=== PATIENT | female | born 2000 | race American Indian/Alaskan Native ===

== ENCOUNTER 2022-08-13 22:40 | Emergency (ER) | payer MEDICAID ==
[2022-08-14] MEDS ORDERED: ACETAMINOPHEN 325 MG TAB PO ONE (03:51)
[2022-08-14] MEDS ORDERED: ONDANSETRON 4 MG/2 ML INJ IV ONE (03:51)
[2022-08-14] MEDS ORDERED: SODIUM CHLORIDE 0.9% 1000 ML 2,000 ML IV ONE (03:51)
[2022-08-14] MEDS ORDERED: MORPHINE 4 MG/1 ML INJ IV ONE (03:51)
--- NOTE | 2022-08-14 03:52 | Event Note ---
Date: 08/14/22 Medical screening examination note: 22-year-old female who states that she is not , presenting with right flank pain and urinary symptoms. She is febrile and tachycardic. She reports no allergies to medications. Appropriate laboratory studies ordered. Pain medication, nausea medication, fluids, Tylenol, and antibiotics ordered. CT scan abdomen pelvis ordered and pending. Patient currently hemodynamically stable, protecting airway, does appear uncomfortable. Detailed history and physical to be performed by myself or oncoming provider. Vital Signs 08/13/22 23:40 Temperature 103.3 F H Pulse Rate 122 H Respiratory 18 Rate Blood Pressure 143/83 [Right] O2 Sat by Pulse 99 Oximetry Lab Results 08/14/22 Range/Units 04:15 Urine Color Yellow (Yellow) Urine Turbidity Slightly cloudy (Clear) Specific [place] (Man) 1.025 (1.003-1.030) Ur Protein (Man) 2+ (Negative) mg/dL Ur Ketones (Man) 4+ (Negative) Ur Nitrite (Man) Positive (Negative) Urine Bilirubin (Man) Negative (Negative) Leukocyte Esterase (Man) Small (Negative) Urine WBC (Auto) 104.0 H (0.0-6.0) /HPF Urine RBC (Auto) 23.0 (0.0-6.0) /HPF U Epithel Cells (Auto) 5.0 (0-13.0) /HPF Urine Bacteria (Auto) 1+ (Negative) /HPF Urine RBC (Manual) 3+ (Negative) Urine Mucus 3+ /HPF
[2022-08-14 04:34] LABS: Color,Urine Yellow (Yellow)
[2022-08-14 04:36] LABS: Bacteria,Urine 1+ /HPF (Negative); Mucus,Urine 3+ /HPF
[2022-08-14] MEDS ORDERED: cefTRIAXone/NS 1 GM/50 ML 1 GM/50 ML BAG IV ONE (04:46)
[2022-08-14 04:49] LABS: Basophils # (Auto) 0.1 K/mm3 (0.0-0.1); Basophils % (Auto) 0.6 % (0.0-1.8); Lymphocytes # (Auto) 1.3 K/mm3 (1.2-5.4); Lymphocytes % (Auto) 12.2 % (13.4-35.0); Mean Corpuscular HGB Conc 32 % (30-34); Mean Corpuscular Volume 87 fl (79-97); Monocytes % (Auto) 9.7 % (0.0-7.3); Platelet Count 210 K/mm3 (140-440); Red Blood Count 4.27 M/mm3 (3.65-5.03); Red Cell Distribution Width 13.1 % (13.2-15.2)
[2022-08-14 04:57] LABS: INR 1.02 (0.87-1.13)
[2022-08-14 05:14] LABS: Alanine Aminotransferase 20 units/L (7-56); Albumin 4.4 g/dL (3.9-5); Blood Urea Nitrogen 7 mg/dL (7-17); Calcium 8.8 mg/dL (8.4-10.2); Hemolysis Index 5
[2022-08-14 05:15] LABS: BUN/Creatinine Ratio 10
--- NOTE | 2022-08-14 05:57 | Cat Scan Report ---
CT ABDOMEN AND PELVIS WITH CONTRAST INDICATION / CLINICAL INFORMATION: Right flank pain and fever 100ml of [id number]. TECHNIQUE: Axial CT images were obtained through the abdomen and pelvis after IV contrast. All CT sc ans at this location are performed using CT dose reduction for ALARA by means of automated exposure c ontrol. COMPARISON: None available. FINDINGS: LOWER CHEST: No significant abnormality of the imaged chest. LIVER: No focal lesion. No acute findings. GALLBLADDER / BILE DUCTS: No significant abnormality. Biliary ducts grossly unremarkable. SPLEEN: No significant abnormality. PANCREAS: No significant abnormality. ADRENALS: No significant abnormality. KIDNEYS/URETERS: Ill-defined hypoattenuating region of the medial right renal cortex upper pole right kidney and anterior cortex lower pole right kidney. Mild striation of the right renal nephrogram add itionally present. Left kidney unremarkable. STOMACH / DUODENUM / SMALL BOWEL: The stomach, duodenum, and small bowel demonstrate no significant a bnormality. No specific abnormality of the mesentery demonstrated. COLON: No significant abnormality. APPENDIX: No significant abnormality. PERITONEUM: No free air or free fluid are present within the abdomen or pelvis. LYMPH NODES: No significant adenopathy. AORTA / ARTERIES: No significant abnormality. IVC / VEINS: No significant abnormality. URINARY BLADDER: No significant abnormality. REPRODUCTIVE ORGANS: No significant abnormality. SKELETAL SYSTEM: No significant abnormality. ADDITIONAL ABDOMINAL/PELVIC FINDINGS: None. IMPRESSION: 1. Findings compatible with right-sided pyelonephritis. Foci of phlegmon are suggested within the med ial upper pole and anterior lower pole right kidney. Signer Name: Leo Shultz II, MD Signed: 08/14/2022 5:52 AM Workstation Name: [id number]
[2022-08-14] MEDS ORDERED: KETOROLAC 30 MG/1 ML INJ IV ONE (07:38)
[2022-08-14] MEDS ORDERED: oxyCODONE /ACETAMINOPHEN 5-325MG TAB PO ONE (07:39)
--- NOTE | 2022-08-14 09:30 | Emergency Department Report ---
ED Female HPI - General Chief complaint: Abdominal Pain Stated complaint: KIDNEY PAIN Time Seen by Provider: 08/14/22 07:11 Source: patient Mode of arrival: Ambulatory Limitations: No Limitations - History of Present Illness Initial comments: 22-year-old black female with no past medical history presents to the emergency department for evaluation of 3-day history of worsening right-sided pain along with fever. She denies nausea, vomiting, abdominal pain, dysuria, and vaginal discharge. She states that pain is worse is 10 out of 10. MD Complaint: other (Right flank pain) -: Gradual, days(s) (3) Location: other (Right flank pain) Severity: severe Severity scale (0 -10): 10 Quality: aching Consistency: constant Are you Now?: No Associated Symptoms: fever/chills. denies: vaginal discharge, vaginal bleeding, abdominal pain, nausea/vomiting, headaches, loss of appetite, dysuria, hematuria, rash, seizure, shortness of breath, syncope, weakness - Related Data Sexually active: Yes Previous Rx's Medication Instructions Recorded Last Taken Type Acetaminophen/Codeine [Tylenol 1 tab PO Q6H PRN #12 tab 08/14/22 Unknown Rx /Codeine # 3 tab] Ketorolac [Toradol] 10 mg PO Q6H PRN #12 tab 08/14/22 Unknown Rx Ondansetron [Zofran Odt] 4 mg PO Q8HR PRN #12 tab.rapdis 08/14/22 Unknown Rx Sulfamethoxazole/Trimethoprim 1 each PO BID 7 Days #14 tab 08/14/22 Unknown Rx [Bactrim DS TAB] Allergies Allergy/AdvReac Type Severity Reaction Status Date / Time No Known Allergies Allergy Unverified 08/13/22 23:44 ED Review of Systems ROS: Stated complaint: KIDNEY PAIN Other details as noted in HPI Comment: All other systems reviewed and negative Constitutional: chills, fever. denies: malaise, weakness ENT: denies: congestion Respiratory: denies: shortness of breath Cardiovascular: denies: chest pain, palpitations Gastrointestinal: denies: abdominal pain, nausea, vomiting, diarrhea, hematemesis, melena, hematochezia Genitourinary: denies: urgency, dysuria Musculoskeletal: back pain (Right flank) Skin: denies: rash, lesions Neurological: denies: headache, weakness ED Past Medical Hx - Medications Home Medications: Home Medications Medication Instructions Recorded Confirmed Last Taken Type Acetaminophen/Codeine [Tylenol 1 tab PO Q6H PRN #12 tab 08/14/22 Unknown Rx /Codeine # 3 tab] Ketorolac [Toradol] 10 mg PO Q6H PRN #12 tab 08/14/22 Unknown Rx Ondansetron [Zofran Odt] 4 mg PO Q8HR PRN #12 tab.rapdis 08/14/22 Unknown Rx Sulfamethoxazole/Trimethoprim 1 each PO BID 7 Days #14 tab 08/14/22 Unknown Rx [Bactrim DS TAB] ED Physical Exam - General Limitations: No Limitations General appearance: alert, in no apparent distress - Head Head exam: Present: atraumatic, normocephalic - Eye Eye exam: Present: normal appearance. Absent: conjunctival injection, periorbital swelling, periorbital tenderness - ENT ENT exam: Present: normal exam - Neck Neck exam: Present: normal inspection. Absent: tenderness, lymphadenopathy - Respiratory Respiratory exam: Present: normal lung sounds bilaterally. Absent: respiratory distress, wheezes, chest wall tenderness - Cardiovascular Cardiovascular Exam: Present: tachycardia, normal heart sounds - GI/Abdominal GI/Abdominal exam: Present: soft, normal bowel sounds. Absent: distended, tenderness, guarding, rebound, rigid - Back Exam Back exam: Present: normal inspection, CVA tenderness (R). Absent: full ROM, CVA tenderness (L), vertebral tenderness - Neurological Exam Neurological exam: Present: alert, oriented X3, CN II-XII intact, normal gait - Psychiatric Psychiatric exam: Present: normal affect, normal mood - Skin Skin exam: Present: warm, dry, intact, normal color ED Course Vital Signs 08/13/22 08/14/22 23:40 10:11 Temperature 103.3 F H 98.5 F Pulse Rate 122 H 87 Respiratory 18 16 Rate Blood Pressure 143/83 132/86 [Right] O2 Sat by Pulse 99 100 Oximetry ED Medical Decision Making - Lab Data Result diagrams: 08/14/22 04:24 08/14/22 04:24 - Radiology Data Radiology results: report reviewed, image reviewed CT abdomen and pelvis without contrast: FINDINGS: LOWER CHEST: No significant abnormality of the imaged chest. LIVER: No focal lesion. No acute findings. GALLBLADDER / BILE DUCTS: No significant abnormality. Biliary ducts grossly unremarkable. SPLEEN: No significant abnormality. PANCREAS: No significant abnormality. ADRENALS: No significant abnormality. KIDNEYS/URETERS: Ill-defined hypoattenuating region of the medial right renal cortex upper pole right kidney and anterior cortex lower pole right kidney. Mild striation of the right renal nep hrogram additionally present. Left kidney unremarkable. STOMACH / DUODENUM / SMALL BOWEL: The stomach, duodenum, and small bowel demonstrate no significant abnormality. No specific abnormality of the mesentery demonstrated. COLON: No significant abnormality. APPENDIX: No significant abnormality. PERITONEUM: No free air or free fluid are present within the abdomen or pelvis. LYMPH NODES: No significant adenopathy. AORTA / ARTERIES: No significant abnormality. IVC / VEINS: No significant abnormality. URINARY BLADDER: No significant abnormality. REPRODUCTIVE ORGANS: No significant abnormality. SKELETAL SYSTEM: No significant abnormality. ADDITIONAL ABDOMINAL/PELVIC FINDINGS: None. IMPRESSION: 1. Findings compatible with right-sided pyelonephritis. Foci of phlegmon are suggested within the medial upper pole and anterior lower pole right kidney. - Medical Decision Making 22-year-old black female with no past medical history presents to the emergency department for evaluation of 3-day history of worsening right-sided pain along w ith fever. She denies nausea, vomiting, abdominal pain, dysuria, and vaginal discharge. She states that pain is worse is 10 out of 10. Physical exam positive for right CVA tenderness, and CT scan positive for pyelonephritis. Patient treated with 1 g of Rocephin IV in the emergency department and discharged home with Bactrim, Zofran, Toradol, and Tylenol 3 to use as directed. She is advised to increase intake of noncaffeinated fluids and follow-up with her primary care provider if no improvement or worsening symptoms. She is advised to return to the emergency department as needed. She verbalizes understanding of and agreement with plan of care. Critical care attestation.: If time is entered above; I have spent that time in minutes in the direct care of this critically ill patient, excluding procedure time. ED Disposition Clinical Impression: Pyelonephritis Disposition: 01 HOME / SELF CARE / HOMELESS Is pt being admited?: No Does the pt Need Aspirin: No Condition: Stable Instructions: Pyelonephritis, Adult, [id number], Abdominal Pain (ED) Additional Instructions: Take medications as prescribed. Increase intake of noncaffeinated fluids. Follow-up with your primary care provider if no improvement or worsening symptoms. Return to the emergency department as needed. Prescriptions: Sulfamethoxazole/Trimethoprim [Bactrim DS TAB] 1 each PO BID 7 Days #14 tab Ketorolac [Toradol] 10 mg PO Q6H PRN #12 tab PRN Reason: Pain Acetaminophen/Codeine [Tylenol /Codeine # 3 tab] 1 tab PO Q6H PRN #12 tab PRN Reason: Pain , Severe (7-10) Ondansetron [Zofran Odt] 4 mg PO Q8HR PRN #12 tab.rapdis PRN Reason: Nausea And Vomiting Referrals: LUL GANT MD [Staff Physician] - 3-5 Days Forms: Work/School Release Form(ED) Time of Disposition: 09:31
[2022-08-14] MEDS ORDERED: oxyCODONE /ACETAMINOPHEN 5-325MG TAB PO NR (10:00)
[2022-08-14] MEDS ORDERED: KETOROLAC 30 MG/1 ML INJ IV NR (10:00)
[2022-08-14 10:12] VITALS: BP 132/86
== END 2022-08-14 10:27 | disposition home or self-care (01) ==
LOC: ED 22:40
DX: G62.9 Polyneuropathy, unspecified (principal)
CPT/HCPCS: 36415; 74177; 80053; 81001; 82550; 83735; 84702; 85025; 85610; 87086; 96365; 96366; 96375; 99284; J0696; J1885; J2270; J2405; J7030; Q9967